=== PATIENT | female | born 1995 | race Caucasian/White ===

== ENCOUNTER 2024-09-26 14:09 | Emergency (ER) | payer OTHER, SELFPAY ==
[2024-09-26 14:20] VITALS: BP 105/63; PULSE 86; RESP 16; TEMP 37.1; O2SAT 100
--- NOTE | 2024-09-26 14:42 | ED_ITS ---
HPI - Ear Problem General Chief complaint: Ear Stated complaint: ear pain Source: patient Mode of arrival: ambulatory Limitations: no limitations History of Present Illness HPI Narrative: 21-year-old female presented for complaint of right ear pain for 5 days. Pain started after air travel. Denies decreased hearing, ear drainage, tinnitus, dizziness, nausea, vomiting, fevers or chills. Has not taken anything for pain. MD Complaint: ear pain Related Data Home Medications Medication Instructions Recorded Confirmed No Home Medications 09/26/24 09/26/24 Allergies Allergy/AdvReac Type Severity Reaction Status Date / Time No Known Allergies Allergy Unverified 09/26/24 14:30 Review of Systems Review of Systems: CONSTITUTIONAL: Denies malaise, chills, or fever. EYES: Denies visual changes, redness, or discharge. ENT: Denies rhinorrhea, congestion, sinus pain, and sore throat. Reports ear pain CARDIOVASCULAR: Denies chest pain, palpitations, or edema. RESPIRATORY: Denies cough or dyspnea. GASTROINTESTINAL: Denies abdominal pain, nausea, vomiting, diarrhea SKIN: Denies rash or itching. MUSCULOSKELETAL: Denies myalgia. NEUROLOGIC: Denies headache. All systems reviewed & are unremarkable except as noted in HPI and below PMFSH Comments At time of signature, agree with nursing past medical, surgical, social and family history. There is no relevant family history pertinent to the presenting complaint Exam Narrative: GENERAL: Well-appearing EYES: PERRLA, conjunctivae clear ENT: Nares clear. Mucous membranes moist. TMs pearly anne with dull light reflex bilaterally; no tragal tenderness. Oropharynx not erythematous without lesions. Tonsils not enlarged and without exudate, no drooling, no hoarseness, no trismus, uvula midline. NECK: Supple. No lymphadenopathy CHEST: Clear to auscultation, breath sounds equal. HEART: Regular rate and rhythm. No murmur heard. SKIN: Warm, dry NEURO: Alert and oriented x3. PSYCH: Normal mood and affect Course Course Emergency Course: Patient is aware of diagnosis, understands and agrees to treatment plan. Anticipatory guidance given. Patient agrees to follow-up as directed and is aware of reasons to seek care at the emergency department. Portions of this record may have been created with voice recognition software Level of Care: Express Care Visit Vital Signs Vital signs: Vital Signs Temperature 98.7 F 09/26/24 14:20 Pulse Rate 86 09/26/24 14:20 Respiratory Rate 16 09/26/24 14:20 Blood Pressure 105/63 09/26/24 14:20 Pulse Oximetry 100 09/26/24 14:20 Oxygen Delivery Room Air 09/26/24 14:20 Temperature 98.7 F 09/26/24 14:20 Pulse Rate 86 09/26/24 14:20 Respiratory Rate 16 09/26/24 14:20 Blood Pressure 105/63 09/26/24 14:20 Pulse Oximetry 100 09/26/24 14:20 Oxygen Delivery Room Air 09/26/24 14:20 Reviewed Medical Decision Making MDM Narrative Medical decision making narrative: discussed physical exam findings, no apparent otitis media. likely 2/2 barotrauma. Advised supportive measures and signs/symptoms to go to the ER. Patient is appropriate for outpatient treatment and follow-up. Differential Diagnosis Differential Diagnosis: Coronavirus, strep pharyngitis, allergic rhinitis, upper respiratory tract infection, sinusitis, rhinosinusitis, nasopharyngitis, viral pharyngitis, otitis media, otitis externa, eustachian tube dysfunction, foreign body, cerumen impaction. Vital Signs Vital Signs: Vital Signs Temperature 98.7 F 09/26/24 14:20 Pulse Rate 86 09/26/24 14:20 Respiratory Rate 16 09/26/24 14:20 Blood Pressure 105/63 09/26/24 14:20 Pulse Oximetry 100 09/26/24 14:20 Oxygen Delivery Room Air 09/26/24 14:20 Temperature 98.7 F 09/26/24 14:20 Pulse Rate 86 09/26/24 14:20 Respiratory Rate 16 09/26/24 14:20 Blood Pressure 105/63 09/26/24 14:20 Pulse Oximetry 100 09/26/24 14:20 Oxygen Delivery Room Air 09/26/24 14:20 Discharge Plan Discharge Clinical Impression: Acute otalgia Patient Disposition: Home, Self-Care Condition: Stable Instructions: Antibiotic Form, Earache (ED) Additional Instructions: Recommendations for ear pain: antihistamine such as Benadryl, Zyrtec or Sybil for sinus congestion along with Flonase nasal spray, 1 spray in each nostril once daily until symptoms improve Symptomatic treatment includes: rest, fluids, and increase humidity of the air at home. Tylenol 1000mg every 8 hours as needed to reduce fever, pain Please schedule a follow-up visit with your personal physician within 3-5days. If your symptoms persist, change or worsen significantly, go to the emergency department for further evaluation. Prescriptions: No Action No Home Medications Follow-up/Referrals: PHYSICIAN,POWERPLANT OPERATOR [Primary Care Provider] - Time of Disposition: 14:46
== END 2024-09-26 14:52 | disposition home or self-care (01) ==
PROVIDERS: Emergency Provider Nurse Practitioner Family
DX: H92.01 Otalgia, right ear (principal)
CPT/HCPCS: 99211; G0463

== ENCOUNTER 2025-02-20 18:10 | Emergency (ER) | payer OTHER, SELFPAY ==
[2025-02-20 18:17] VITALS: BP 103/60; PULSE 74; RESP 16; TEMP 36.7; O2SAT 100
--- OUTSIDE RECORDS SUMMARY | 2025-02-20 18:19 | XMS_ITS | Data Portability ---
Author Organization [facility] Address [address] [place] [address] Care Team Providers Care Provider Relations Coordinator Name Role Phone DAMIR BRISCOE Data Analysis Intern Assessment Encounter Date Assessment Date Assessment LastModified by Organization Details LastModified Time 09/10/2020 09/10/2020 PETRA Anaya PAMaxiS Not available 09/10/2020 16:41:01 Plan of Treatment Reminders Order Date Submit Date Provider Last Modified By Organization Details Last Modified Time Details Appointments None recorded. Lab urinalysis , dipstick 2022 023 [email or web address] i1 In-Office Order, Internal Use Only DO Not Attach Compendium DO Not Attach Compendium, Do Not Delete/merge, [id number] 3 15:37:27 bacterial vaginosis score, LAURIE+probe, vaginal fluid (OBS) 2022 023 [facility], [address] [place] [address], [address], [place], [address], 3 14:08:22 bacterial vaginosis score, LAURIE+probe, vaginal fluid (OBS) 2022 023 [facility], [address] [facility], [address], [place], [address], 3 14:08:17 pap, IG + reflex HPV 2021 022 DBA_PATCH_ [id number] [facility], [address], [place], [address], 3 03:37:09 bacterial vaginosis score, LAURIE+probe, vaginal fluid (OBS) 2021 022 DBA_PATCH_ [id number] [facility], [address], [place], [address], 3 03:37:09 urinalysis , dipstick 2021 022 [email or web address] i1 In-Office Order, Internal Use Only DO Not Attach Compendium DO Not Attach Compendium, Do Not Delete/merge, [id number] 2 16:12:34 urinalysis , dipstick 2019 020 [email or web address] In-Office Order, Internal Use Only DO Not Attach Compendium DO Not Attach Compendium, Do Not Delete/merge, [id number] 0 13:04:13 bacterial vaginosis panel, vaginal 2019 020 RITA [facility] (Centralized Electronic Ordering - All Locations), Patient Can Go To The Location Of Their Choice, [id number] 0 07:09:47 test, urine 2019 020 [email or web address] i1 In-Office Order, Internal Use Only DO Not Attach Compendium DO Not Attach Compendium, Do Not Delete/merge, [id number] 0 17:09:00 Referral None recorded. Procedures None recorded. Surgeries None recorded. Imaging None recorded. Medication Orders terconazol e 0.8 % vaginal cream 2022 023 [facility], [address], [place], [address], 3 15:37:36 fluconazol e 150 mg tablet 2022 023 [facility], [address], [place], [address], 3 15:16:18 Orilissa 150 mg tablet 2021 022 [facility], [address] [place], [address], 3 14:10:34 Orilissa 150 mg tablet 2020 [facility], [address] [place], [address], 3 14:10:32 multivitam in tablet 2019 [facility], [address] [place] [address], [address], 2 16:01:43 Calcium with Vitamin D 600 mg-10 mcg (400 unit) tablet 2019 [facility], [address] [place] [address], [address], 2 16:01:10 metronidaz ole 500 mg tablet 2019 021 [facility], [address] [place] [address], [address], 1 16:52:28 Nexplanon 68 mg subdermal implant 2019 [facility], [address] [place] [address], [address], 0 13:21:55 Patient TargetsNo targets recorded. Patient Instructions Encounter Date Encounter Id Patient Instructions Last Modified By Organization Details Last Modified Time 09/10/2020 [id number] bacterial vaginosis: care instructions Not available 09/10/2020 12:57:38 endometriosis: care instructions Not available 09/10/2020 12:57:38 implant for stanley h control: care instructions Not available 09/10/2020 12:57:38 12/10/2021 [id number] Well Visit, Ages 18 to 65: Care Instructions Not available 12/10/2021 16:12:34 endometriosis: care instructions Not available 12/11/2021 12:05:[address] Mikael blankenship Not available 01/02/2022 12:25:24 12/17/2022 [id number] PETRA BriscoeS, Discussed with Matilde Briscoe PA-C Not available 12/17/2022 14:39:13 Reason for Referral None Reported. Results Created Date Observation Date Name Description Value Unit Range Abnormal Flag Note LastModifiedBy Organization Detail LastModifiedTime 09/10/2009/10/2020 urina lysis , dipst ick Leukocytes Negati ve Not Available In-Office Order Internal Use Only DO Not Attach Compendium DO Not Attach Compendium, Do Not Delete/merge, [id number] 09/10/2020 12:18:19 09/10/20 20 09/10/2020 urina lysis , dipst ick Nitrite negati ve Not Available In-Office Order Internal Use Only DO Not Attach Compendium DO Not Attach Compendium, Do Not Delete/merge, [id number] 09/10/2020 12:18:19 09/10/20 20 09/10/2020 urina lysis , dipst ick Urobilinogen 1 Not Available In-Of fice Order Internal Use Only DO Not Attach Compendium DO Not Attach Compendium, Do Not Delete/merge, [id number] 09/10/2020 12:18:19 09/10/20 20 09/10/2020 urina lysis , dipst ick Protein Negati ve Not Available In-Office Order Internal Use Only DO Not Attach Compendium DO Not Attach Compendium, Do Not Delete/merge, [id number] 09/10/2020 12:18:19 09/10/20 20 09/10/2020 urina lysis , dipst ick pH 7.0 Not Available In-Office Order Internal Use Only DO Not Attach Compendium DO Not Attach Compendium, Do Not Delete/merge, [id number] 09/10/2020 12:18:19 09/10/20 20 09/10/2020 urina lysis , dipst ick Blood Negati ve Not Available In-Office Order Internal Use Only DO Not Attach Compendium DO Not Attach Compendium, Do Not Delete/merge, [id number] 09/10/2020 12:18:19 09/10/20 20 09/10/2020 urina lysis , dipst ick Specific Tunas 1.020 Not Available In-Off ice Order Internal Use Only DO Not Attach Compendium DO Not Attach Compendium, Do Not Delete/merge, [id number] 09/10/2020 12:18:19 09/10/20 20 09/10/2020 urina lysis , dipst ick Ketone Negati ve Not Available In-Office Order Internal Use Only DO Not Attach Compendium DO Not Attach Compendium, Do Not Delete/merge, [id number] 09/10/2020 12:18:19 09/10/20 20 09/10/2020 urina lysis , dipst ick Bilirubin Negati ve Not Available In-Office Order Internal Use Only DO Not Attach Compendium DO Not Attach Compendium, Do Not Delete/merge, [id number] 09/10/2020 12:18:19 09/10/20 20 09/10/2020 urina lysis , dipst ick Glucose Negati ve Not Available In-Office Order Internal Use Only DO Not Attach Compendium DO Not Attach Compendium, Do Not Delete/merge, [id number] 09/10/2020 12:18:19 09/10/20 20 09/10/2020 pregn verna test, urine HCG negati ve Not Available In-Office Order Internal Use Only DO Not Attach Compendium DO Not Attach Compendium, Do Not Delete/merge, [id number] 09/10/2020 12:18:03 09/10/20 20 09/13/2020 bacte rial vagin osis panel , vagin al trich vag by LAURIE NEGATI VE negati ve Not Available [facility] ([facility]) [address] [facility], [place], [address], 09/15/2020 07:09:47 09/10/20 20 09/13/2020 bacte rial vagin osis panel , vagin al chlamydia trachomatis, LAURIE NEGATI VE negati ve Not Available [facility] ([facility]) [address] [facility], [place], [address], 09/15/2020 07:09:47 09/10/2009/13/2020 bacte rial vagin osis panel , vagin al neisseria gonorrhoeae, LAURIE NEGATI VE negati ve Not Available [facility] ([facility]) [address] [place], [address], 09/15/2020 07:09:47 09/10/2009/13/2020 bacte rial vagin osis panel , vagin al hsv 1 LAURIE NEGATI VE negati ve Not Available [facility] ([facility]) [address] [place], [address], 09/15/2020 07:09:47 09/10/2009/13/2020 bacte rial vagin osis panel , vagin al hsv 2 LAURIE NEGATI VE negati ve Not Available [facility] ([facility]) [address] [place], [address], 09/15/2020 07:09:47 09/10/2009/14/2020 bacte rial vagin osis panel , vagin al atopobium vaginae HIGH - 2 score abnormal Not Available [facility] ([facility]) [address] [place], [address], 09/15/2020 07:09:47 09/10/2009/14/2020 bacte rial vagin osis panel , vagin al bvab 2 LOW - 0 score Not Available [facility] ([facility]) [address] [place], [address], 09/15/2020 07:09:47 09/10/2009/14/2020 bacte rial vagin osis panel , vagin al megasphaera 1 LOW - 0 score Calcu late total score by john dejesus the 3 indiv idual bacte rial vagin osis (BV) marke r score s toget her. Total score is inter prete d as follo ws: Total score 0-1: Indic ates the absen ce of BV. Total score 2: Yinka lim ate for BV. Addit ional clini maria l data shoul d be evalu ated to estab bernard a diagn osis. Total score 3-6: Indic ates the prese nce of BV. This test was devel oped and its perfo rmanc e raquel cteri stics deter mined by [facility]. It has not been clear ed or appro jane by the Food and Drug Admin istra tion. The FDA has deter mined that such clear ance or appro roverto is not neces ryanne. Not Available [facility] ([facility]) [address] [place], [address], 09/15/2020 07:09:47 09/10/20 20 09/15/2020 bacte rial vagin osis panel , vagin al yossi albicans, LAURIE POSITI VE negati ve abnormal Not Available [facility] ([facility]) [address] [place], [address], 09/15/2020 07:09:47 09/10/20 20 09/15/2020 bacte rial vagin osis panel , vagin al yossi glabrata, LAURIE NEGATI VE negati ve Not Available [facility] ([facility]) [address] [place], [address], 09/15/2020 07:09:47 12/10/19 22 12/10/2021 urina lysis , dipst ick Leukocytes Negati ve Not Available In-Office Order Internal Use Only DO Not Attach Compendium DO Not Attach Compendium, Do Not Delete/merge, [id number] 12/10/2021 15:51:01 12/10/19 22 12/10/2021 urina lysis , dipst ick Nitrite negati ve Not Available In-Office Order Internal Use Only DO Not Attach Compendium DO Not Attach Compendium, Do Not Delete/merge, [id number] 12/10/2021 15:51:01 12/10/19 22 12/10/2021 urina lysis , dipst ick Urobilinogen .2 Not Available In-Of fice Order Internal Use Only DO Not Attach Compendium DO Not Attach Compendium, Do Not Delete/merge, 12/10/2021 15:51:01 12/10/19 22 12/10/2021 urina lysis , dipst ick Protein Negati ve Not Available In-Office Order Internal Use Only DO Not Attach Compendium DO Not Attach Compendium, Do Not Delete/merge, 12/10/2021 15:51:01 12/10/19 22 12/10/2021 urina lysis , dipst ick pH 6.0 Not Available In-Office Order Internal Use Only DO Not Attach Compendium DO Not Attach Compendium, Do Not Delete/merge, 12/10/2021 15:51:01 12/10/19 22 12/10/2021 urina lysis , dipst ick Blood Negati ve Not Available In-Office Order Internal Use Only DO Not Attach Compendium DO Not Attach Compendium, Do Not Delete/merge, 12/10/2021 15:51:01 12/10/19 22 12/10/2021 urina lysis , dipst ick Specific Tunas 1.030 Not Available In-Off ice Order Internal Use Only DO Not Attach Compendium DO Not Attach Compendium, Do Not Delete/merge, 12/10/2021 15:51:01 12/10/19 22 12/10/2021 urina lysis , dipst ick Ketone Negati ve Not Available In-Office Order Internal Use Only DO Not Attach Compendium DO Not Attach Compendium, Do Not Delete/merge, 12/10/2021 15:51:01 12/10/19 22 12/10/2021 urina lysis , dipst ick Bilirubin Small Not Available In-Offic e Order Internal Use Only DO Not Attach Compendium DO Not Attach Compendium, Do Not Delete/merge, 12/10/2021 15:51:01 12/10/19 22 12/10/2021 urina lysis , dipst ick Glucose Negati ve Not Available In-Office Order Internal Use Only DO Not Attach Compendium DO Not Attach Compendium, Do Not Delete/merge, 12/10/2021 15:51:01 12/11/19 22 12/17/2021 NUSWA B VG+, HSV atopobium vaginae HIGH - 2 score abnormal Not Available [facility] ([facility]) [address] [facility], [place], [address], 12/17/2021 11:38:00 12/11/19 22 12/17/2021 NUSWA B VG+, HSV bvab 2 LOW - 0 score Not Available [facility] ([facility]) [address] [facility], [place], [address], 12/17/2021 11:38:00 12/11/19 22 12/17/2021 NUA B VG+, HSV megasphaera 1 LOW - 0 score Calcu late total score by john dejesus the 3 indiv idual bacte rial vagin osis (BV) marke r score s toget her. Total score is inter prete d as follo ws: Total score 0-1: Indic ates the absen ce of BV. Total score 2: Indet ermin ate for BV. Addit ional clini maria l data shoul d be evalu ated to estab bernard a diagn osis. Total score 3-6: Indic ates the prese nce of BV. This test was devel oped and its perfo rmanc e raquel cteri stics deter mined by [facility]. It has not been clear ed or appro jane by the Food and Drug Admin istra tion. Not Available [facility] ([facility]) [address] [facility], [place], [address], 12/17/2021 11:38:00 12/11/19 22 12/17/2021 NUSWA B VG+, HSV yossi albicans, LAURIE POSITI VE negati ve abnormal Not Available [facility] ([facility]) [address] [facility], [place], [address], 12/17/2021 11:38:00 12/11/19 22 12/17/2021 NUSWA B VG+, HSV yossi glabrata, LAURIE NEGATI VE negati ve Not Available [facility] ([facility]) [address] [facility], [place], [address], 12/17/2021 11:38:00 12/11/19 22 12/17/2021 NUA B VG+, HSV trich vag by LAURIE NEGATI VE negati ve Not Available [facility] ([facility]) [address] [facility], [place], [address], 12/17/2021 11:38:00 12/11/19 22 12/17/2021 NUSWA B VG+, HSV chlamydia trachomatis, LAURIE NEGATI VE negati ve Not Available [facility] ([facility]) [address] [facility], [place], [address], 12/17/2021 11:38:00 12/11/19 22 12/17/2021 NUA B VG+, HSV neisseria gonorrhoeae, LAURIE NEGATI VE negati ve Not Available [facility] ([facility]) [address] [facility], [place], [address], 12/17/2021 11:38:00 12/11/19 22 12/17/2021 NUA B VG+, HSV hsv 1 LAURIE NEGATI VE negati ve Not Available [facility] ([facility]) [address] [facility], [place], [address], 12/17/2021 11:38:00 12/11/19 22 12/17/2021 NUA B VG+, HSV hsv 2 LAURIE NEGATI VE negati ve Not Available [facility] ([facility]) [address] [place], [address], 12/17/2021 11:38:00 12/11/19 22 12/13/2021 IGP,A PTIMA HPV,A GE GDLN age gdln acog testing 21-29 Not Available [facility] ([facility]) [address] [place], [address], 12/18/2021 03:07:36 12/11/19 22 12/16/2021 IGP,A PTIMA HPV,A GE GDLN diagnosis: WALLY Zambrano abnormal EPITH ELIAL CELL ABNOR MALIT Y. ATYPI MARIA L SQUAM OUS CELLS OF UNDET ERMIN ED SIGNI FICAN CE (ASC- US). Not Available [facility] ([facility]) [address] [place], [address], 12/18/2021 03:07:36 12/11/19 22 12/16/2021 IGP,A PTIMA HPV,A GE GDLN recommendati on: WALLY Zambrano abnormal Sugge st follo w up as clini chirag appro priat e. Not Available [facility] ([facility]) [address] [place], [address], 12/18/2021 03:07:36 12/11/19 22 12/16/2021 IGP,A PTIMA HPV,A GE GDLN specimen adequacy: WALLY Zambrano Satis facto ry for evalu ation . Endoc ervic al and/o r squam ous metap lasti c cells (endo cervi maria l compo nent) are prese nt. Not Available [facility] ([facility]) [address] [place], [address], 12/18/2021 03:07:36 12/11/19 22 12/16/2021 IGP,A PTIMA HPV,A GE GDLN clinician provided ICD10: WALLY Zambrano Z01.4 19 Not Available [facility] ([facility]) [address] [place], [address], 12/18/2021 03:07:36 12/11/19 22 12/16/2021 IGP,A PTIMA HPV,A GE GDLN performed by: WALLY garcia, Cytot gena zambrano (ASCP ) Not Available [facility] ([facility]) [address] [place], [address], 12/18/2021 03:07:36 12/11/19 22 12/16/2021 IGP,A PTIMA HPV,A GE GDLN electronical ly signed by: WALLY Tadeo MD, Patho logis t Not Available [facility] ([facility]) [address] [facility], [place], [address], 12/18/2021 03:07:36 12/11/19 22 12/16/2021 IGP,A PTIMA HPV,A GE GDLN . . Not Available [facility] ([facility]) [address] [place], [address], 12/18/2021 03:07:36 12/11/19 22 12/16/2021 IGP,A PTIMA HPV,A GE GDLN pathologist provided ICD10: WALLY Zambrano R87.6 10 Not Available [facility] ([facility]) [address] [facility], [place], [address], 12/18/2021 03:07:36 12/11/19 22 12/16/2021 IGP,A PTIMA HPV,A GE GDLN note: WALLY Zambrano The Pap smear is a scree vangie test desig rea to aid in the detec tion of kiki ligna nt and malig nant condi tions of the uteri ne cervi x. It is not a diagn ostic proce dure and shoul d not be used as the sole means of detec ting cervi maria l cance r. Both false -posi tive and false -nega tive repor ts do occur . Not Available [facility] ([facility]) [address] [facility], [place], [address], 12/18/2021 03:07:36 12/11/19 22 12/16/2021 IGP,A PTIMA HPV,A GE GDLN test methodology: WALLY Zambrano This liqui d based ThinP rep(R ) pap test was scree rea with the use of an image guide d syste m. Not Available [facility] ([facility]) [address] [place], [address], 12/18/2021 03:07:36 12/11/19 22 12/16/2021 IGP,A PTIMA HPV,A GE GDLN . COMMEN T See below for HPV testi ng resul ts. Not Available [facility] ([facility]) [address] [facility], [place], [address], 12/18/2021 03:07:36 12/11/19 22 12/17/2021 cytol ogy repor t, thin prep, smear or scrap ing, cervi maria l or vagin al HPV aptima NEGATI VE negati ve This nucle ic acid ampli ficat ion test detec ts fourt een high- risk HPV types (16,1 8,31, 33,35 ,39,4 5,51, 52,56 ,58,5 9,66, 68) witho ut diffe renti ation . Not Available [facility] ([facility]) [address] [facility], [place], [address], 12/18/2021 03:07:37 12/17/19 23 12/20/2022 NUSWA B VG+, HSV atopobium vaginae LOW - 0 score Not Available [facility] ([facility]) [address] [facility], [place], [address], 12/21/2022 14:08:17 12/17/19 23 12/20/2022 NUSWA B VG+, HSV bvab 2 LOW - 0 score Not Available [facility] ([facility]) [address] [place], [address], 12/21/2022 14:08:17 12/17/19 23 12/20/2022 NUSWA B VG+, HSV megasphaera 1 LOW - 0 score Calcu late total score by john dejesus the 3 indiv idual bacte rial vagin osis (BV) marke r score s toget her. Total score is inter prete d as follo ws: Total score 0-1: Indic ates the absen ce of BV. Total score 2: Indet ermin ate for BV. Addit ional clini maria l data shoul d be evalu ated to estab bernard a diagn osis. Total score 3-6: Indic ates the prese nce of BV. This test was devel oped and its perfo rmanc e raquel cteri stics deter mined by [facility]. It has not been clear ed or appro jane by the Food and Drug Admin istra tion. Not Available [facility] ([facility]) [address] [place], [address], 12/21/2022 14:08:17 12/17/19 23 12/20/2022 NUSWA B VG+, HSV trich vag by LAURIE NEGATI VE negati ve Not Available [facility] ([facility]) [address] [place], [address], 12/21/2022 14:08:17 12/17/19 23 12/20/2022 NUSWA B VG+, HSV chlamydia trachomatis, LAURIE NEGATI VE negati ve Not Available [facility] ([facility]) [address] [place], [address], 12/21/2022 14:08:17 12/17/19 23 12/20/2022 NUSWA B VG+, HSV neisseria gonorrhoeae, LAURIE NEGATI VE negati ve Not Available [facility] ([facility]) [address] [place], [address], 12/21/2022 14:08:17 12/17/19 23 12/21/2022 NUSWA B VG+, HSV yossi albicans, LAURIE POSITI VE negati ve abnormal Not Available [facility] ([facility]) [address] [place], [address], 12/21/2022 14:08:17 12/17/19 23 12/21/2022 NUSWA B VG+, HSV yossi glabrata, LAURIE NEGATI VE negati ve Not Available [facility] ([facility]) [address] [place], [address], 12/21/2022 14:08:17 12/17/19 23 12/21/2022 NUSWA B VG+, HSV hsv 1 LAURIE NEGATI VE negati ve Not Available [facility] ([facility]) [address] [facility], [place], [address], 12/21/2022 14:08:17 12/17/19 23 12/21/2022 NUSWA B VG+, HSV hsv 2 LAURIE NEGATI VE negati ve Not Available [facility] ([facility]) [address] [facility], [place], [address], 12/21/2022 14:08:17 07/08/20 23 07/11/2023 NUSWA B VG+, HSV atopobium vaginae Low - 0 score Not Available [facility] ([facility]) [address] [facility], [place], [address], 07/12/2023 14:08:22 07/08/20 23 07/11/2023 NUSWA B VG+, HSV bvab 2 Low - 0 score Not Available [facility] ([facility]) [address] [place], [address], 07/12/2023 14:08:22 07/08/20 23 07/11/2023 NUSWA B VG+, HSV megasphaera 1 Low - 0 score Calcu late total score by john dejesus the 3 indiv idual bacte rial vagin osis (BV) marke r score s toget her. Total score is inter prete d as follo ws: Total score 0-1: Indic ates the absen ce of BV. Total score 2: Indet ermin ate for BV. Addit ional clini maria l data shoul d be evalu ated to estab bernard a diagn osis. Total score 3-6: Indic ates the prese nce of BV. This test was devel oped and its perfo rmanc e raquel cteri stics deter mined by [facility]. It has not been clear ed or appro jane by the Food and Drug Admin istra tion. Not Available [facility] ([facility]) [address] [facility], [place], [address], 07/12/2023 14:08:22 07/08/20 23 07/11/2023 NUSWA B VG+, HSV trich vag by LAURIE Negati ve negati ve Not Available [facility] ([facility]) [address] [facility], [place], [address], 07/12/2023 14:08:22 07/08/20 23 07/11/2023 NUSWA B VG+, HSV chlamydia trachomatis, LAURIE Negati ve negati ve Not Available [facility] ([facility]) [address] [facility], [place], [address], 07/12/2023 14:08:22 07/08/20 23 07/11/2023 NUSWA B VG+, HSV neisseria gonorrhoeae, LAURIE Negati ve negati ve Not Available [facility] ([facility]) [address] [facility], [place], [address], 07/12/2023 14:08:22 07/08/20 23 07/11/2023 NUSWA B VG+, HSV hsv 1 LAURIE Negati ve negati ve Not Available [facility] ([facility]) [address] [place], [address], 07/12/2023 14:08:22 07/08/20 23 07/11/2023 NUSWA B VG+, HSV hsv 2 LAURIE Negati ve negati ve Not Available [facility] ([facility]) [address] [place], [address], 07/12/2023 14:08:22 07/08/20 23 07/12/2023 NUSWA B VG+, HSV yossi albicans, LAURIE Positi ve negati ve abnormal Not Available [facility] ([facility]) [address] [place], [address], 07/12/2023 14:08:22 07/08/20 23 07/12/2023 NUSWA B VG+, HSV yossi glabrata, LAURIE Negati ve negati ve Not Available [facility] ([facility]) [address], [place], [address], 07/12/2023 14:08:22 07/08/20 23 07/08/2023 urina lysis , dipst ick Leukocytes Trace Not Available In-Offi ce Order Internal Use Only DO Not Attach Compendium DO Not Attach Compendium, Do Not Delete/merge, [id number] 07/08/2023 15:33:43 07/08/2007/08/2023 urina lysis , dipst ick Nitrite negati ve Not Available In-Office Order Internal Use Only DO Not Attach Compendium DO Not Attach Compendium, Do Not Delete/merge, [id number] 07/08/2023 15:33:43 07/08/2007/08/2023 urina lysis , dipst ick Urobilinogen 1 Not Available In-Of fice Order Internal Use Only DO Not Attach Compendium DO Not Attach Compendium, Do Not Delete/merge, [id number] 07/08/2023 15:33:43 07/08/2007/08/2023 urina lysis , dipst ick Protein Negati ve Not Available In-Office Order Internal Use Only DO Not Attach Compendium DO Not Attach Compendium, Do Not Delete/merge, [id number] 07/08/2023 15:33:43 07/08/2007/08/2023 urina lysis , dipst ick pH 6.5 Not Available In-Office Order Internal Use Only DO Not Attach Compendium DO Not Attach Compendium, Do Not Delete/merge, [id number] 07/08/2023 15:33:43 07/08/2007/08/2023 urina lysis , dipst ick Blood Negati ve Not Available In-Office Order Internal Use Only DO Not Attach Compendium DO Not Attach Compendium, Do Not Delete/merge, [id number] 07/08/2023 15:33:43 07/08/2007/08/2023 urina lysis , dipst ick Specific Tunas 1.025 Not Available In-Off ice Order Internal Use Only DO Not Attach Compendium DO Not Attach Compendium, Do Not Delete/merge, [id number] 07/08/2023 15:33:43 07/08/2007/08/2023 urina lysis , dipst ick Ketone Negati ve Not Available In-Office Order Internal Use Only DO Not Attach Compendium DO Not Attach Compendium, Do Not Delete/merge, [id number] 07/08/2023 15:33:43 07/08/2007/08/2023 urina lysis , dipst ick Bilirubin Negati ve Not Available In-Office Order Internal Use Only DO Not Attach Compendium DO Not Attach Compendium, Do Not Delete/merge, [id number] 07/08/2023 15:33:43 07/08/2007/08/2023 urina lysis , dipst ick Glucose Negati ve Not Available In-Office Order Internal Use Only DO Not Attach Compendium DO Not Attach Compendium, Do Not Delete/merge, [id number] 07/08/2023 15:33:43 Result Notes None recorded. Problems Name Problem SNOMED Code Status Onset Date Resolution Date Notes Provider Name and Address Organization Details Recorded Time 08265811 Completed 201705/20/2018 [place]vin [place]erm[place], [place] [facility] 8 16:24:36 Endometri osis (clinical ) 766646156 Completed [place]BIN[place] [facility] 9 11:58:39 History of chlamydia l infection 087071623 Com[place] [facility] 9 11:58:40 Cyst of ovary 13538531 Completed 2017 [place] [facility] 9 11:58:39 Cyst of ovary 88233253 Active 2017 [place] [facility] 9 11:58:40 History of chlamydia l infection 992415732 Completed 11/03/2018 [place] [facility] 8 13:28:00 Migraine 94888798 Completed 2017 Valarie Shaikh [place] [facility] 9 11:58:39 Migraine 51812880 Active 2017 Valarie Shaikh [place] [facility] 9 11:58:39 Endometri osis (clinical ) 155345947 Active Valarie Shaikh [place] [facility] 9 11:58:39 Bacterial vaginosis 853738850 Completed 2017 Valarie Shaikh [place] [facility] 9 11:58:40 Bacterial vaginosis 390100947 Active 2017 Valarie Shaikh [place] [facility] 9 11:58:40 Candidias is of vagina 39215616 Active 2017 Valarie Shaikh [place] [facility] 9 11:45:15 Toe swelling 045109786 Completed 05/20/2018 Er[place] [facility] 8 16:24:19 Celluliti s of toe 10333521 Completed 05/20/2018 [place] [facility] 8 16:24:24 Swelling 28309737 Completed 05/20/2018 Ervin LastRoseline [place] [facility] 8 16:24:32 Computed tomograph y result abnormal 912014825 Completed 201605/20/2018 Ervin LastRoseline [place] [facility] 8 16:24:16 Kidney lesion 547167488947 00 Completed 201611/03/2018 Jazz Gutierrez [place] [facility] 8 13:28:00 Acute pharyngit is 394712290 Completed 201611/03/2018 Jazz Gutierrez [place] [facility] 8 13:28:00 Allergic rhinitis 89507225 Completed 201611/03/2018 Jazz Gutierrez [place] [facility] 8 13:28:00 Notes:Toe plus burak toenails are going back after being removed 02/2014 Problem Notes None recorded. Procedures Surgical History Date Name Laterality Status Provider Name and Address Organization Details Recorded Time 2 Date of Last Pap Smear completed Dora Hunter MA [facility] 12/10/2021 16:03:09 0 Control Implant Insertion completed SILVIO DELGADO Attn: Accounting,[address] [facility], [place], [address], [facility] 09/10/2020 14:53:02 9 Depo Injection completed Jazz Gutierrez MA [facility] 02/18/2019 10:42:02 9 delivery completed Dora Hunter MA [facility] 09/10/2020 12:16:35 Imaging Results None recorded. Procedure Notes None recorded. Medical Equipment None Reported. Allergies No known drug allergies Medications Name Sig Start Date Stop Date Status Note LastModified by Organization Details LastModified Time multivita min tablet Take 1 tablet every day by oral route. 12/10 completed Not Available Not Available Not Available cetirizin e 10 mg tablet Take 1 tablet every day by oral route. 12/10 completed Not Available Not Available Not Available fluconazo le 150 mg tablet Take 1 tablet every day by oral route for 1 day. 07/08 completed Not Available Not Available Not Available metronida zole 0.75 % (37.5 mg/5 gram) vaginal gel INSERT 1 APPLICAT ORFUL VAGINALL Y ONCE DAILY AT BEDTIME FOR 5 DAYS 12/17 completed Not Available Not Available Not Available terconazo le 0.8 % vaginal cream Insert 1 applicat orful every day by vaginal route at bedtime for 3 days. 2022 active Not Available Not Available Not Avai lable Zithromax Z-Nicholas 250 mg tablet TAKE 2 TABLETS (500 MG) BY ORAL ROUTE ONCE DAILY FOR 1 DAY THEN 1 TABLET (250 MG) BY ORAL ROUTE ONCE DAILY FOR 4 DAYS 11/17 completed Not Available Not Available Not Available metronida zole 500 mg tablet Take 1 tablet twice a day by oral route for 7 days. 08/29 completed Not Available Not Available Not Available Vitamin tablet Take 1 tablet every day by oral route as directed for 90 days. 09/26 completed Not Available Not Available Not Available Depo-Prov era 150 mg/mL intramusc ular suspensio n Inject 1 mL every 3 months by intramus cular route. 09/26 completed Not Available Not Available Not Available ibuprofen 200 mg tablet Take 2 tablets every 6 hours by oral route as needed. 12/10 completed Not Available Not Available Not Available monteluka st 10 mg tablet Take 1 tablet every day by oral route. 08/29 completed 09/10/20 Pt still takes medicati on Not Available Not Available Not Available azithromy luis 500 mg tablet Take 2 tablets by oral route for 3 days. 04/26 completed Not Available Not Available Not Available ferrous gluconate 324 mg (36 mg iron) tablet 12/10 completed Not Available Not Available Not Available ferrous gluconate 324 mg (38 mg iron) tablet Take 1 tablet twice a day by oral route. 11/17 completed Not Available Not Available Not Available Calcium with Vitamin D3 600 mg (carbonat e)-10 mcg (400 unit) capsule Take 1 capsule twice a day by oral route. 09/10 completed Not Available Not Available Not Available Calcium with Vitamin D 600 mg-10 mcg (400 unit) tablet Take 1 tablet twice a day by oral route. 12/10 completed Not Available Not Available Not Available Nexplanon 68 mg subdermal implant Inject 1 implant by subcutan eous route. 2019 active Not Available Not Available Not Avai lable Flonase Allergy Relief 50 mcg/actua tion nasal spray,gisela pension [place] 1 spray every day by intranas al route. 08/29 completed Not Available Not Available Not Available Orilissa 150 mg tablet Take 1 tablet every day by oral route. 12/17 completed Not Available Not Available Not Available ID NOW COVID-19 Test Kit TEST DIRECTED 07/08 completed Not Available Not Available Not Available Vitals Date Recorded Body height Body mass index (BMI) Body weight Systolic blood pressure Diastolic blood pressure Provider Name and Address Organization Details Last Updated DateTime 09/10/2020 165.1 cm 19 kg/m2 66358.67 g 98 mm[Hg] 56 mm[Hg] Dora Hunter MA [facility] 0 12:23:34 Date Recorded Body height Body mass index (BMI) Body weight Systolic blood pressure Diastolic blood pressure Provider Name and Address Organization Details Last Updated DateTime 08/29/2021 165.1 cm 19.3 kg/m2 45520.71 g 124 mm[Hg] 62 mm[Hg] Dora Hunter MA [facility] 1 16:42:34 Date Recorded Body height Body mass index (BMI) Body weight Systolic blood pressure Diastolic blood pressure Provider Name and Address Organization Details Last Updated DateTime 12/10/2021 165.1 cm 19 kg/m2 46883.53 g 120 mm[Hg] 62 mm[Hg] Dora Hunter MA [facility] 2 16:05:04 Date Recorded Body height Body mass index (BMI) Body weight Systolic blood pressure Diastolic blood pressure Provider Name and Address Organization Details Last Updated DateTime 12/17/2022 165.1 cm 19.1 kg/m2 15145.69 g 96 mm[Hg] 52 mm[Hg] Dora Hunter MA [facility] 3 14:13:01 Date Recorded Body height Body mass index (BMI) Body weight Systolic blood pressure Diastolic blood pressure Provider Name and Address Organization Details Last Updated DateTime 07/08/2023 165.1 cm 18.5 kg/m2 43471.75 g 98 mm[Hg] 52 mm[Hg] Valarie Shaikh MA [facility] 3 15:19:49 Social History Question Answer Notes LastModified by Organizat ion Details LastModified Time Tobacco Smoking Status Current Every Day Smoker Valarie Shaikh MA [facility], [facility] 07/08/2023 15:17:48 Do You Have An Advance Directive? No [email or web address] Information not available 01/04/2018 What Is Your Level Of Alcohol Consumption? None [email or web address] Information not available 01/04/2018 If You Are , What Was Your Level Of Alcohol Consumption Prior To ? None Information not available 04/26/2018 Is Blood Transfusion Acceptable In An Emergency? Yes [email or web address] Information not available 01/04/2018 What Is Your Level Of Caffeine Consumption? Occasional [email or web address] Information not available 01/04/2018 Live With Cats/exposure To Cat Litter No Information not available 04/26/2018 How Much Tobacco Do You Chew? None [email or web address] Information not available 01/04/2018 Are You Currently Employed? Yes [email or web address] Information not available 01/04/2018 What Type Of Diet Are You Following? REGULAR Information not available 01/04/2018 Which Illicit Or Recreational Drugs Have You Used? 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 No Information not available 04/26/2018 Frequent Air Travel No Information not available 04/26/2018 Illicit Drugs Pre- None Information not available 04/26/2018 Live Alone Or With Others? With Others [email or web address] Information not available 01/04/2018 Marital Status Single Informatio n not available 04/26/2018 What Was The Date Of Your Most Recent Tobacco Screening? 07/08/2023 Information not available 07/08/2023 How Many Children Do You Have? 0 [email or web address] Information not available 01/04/2018 Are There Any Occupational Health Risks Where You Work? None Information not available 04/26/2018 What Is Your Current Pack Years? [email or web address] Information not available 07/08/2023 Performs Monthly Self-breast Exam? Yes [email or web address] Information not available 01/04/2018 Do You Use Protection During Sex? No [email or web address] Information not available 01/04/2018 What Is Your Relationship Status? Single [email or web address] Information not available 01/04/2018 Seat Belts Used Routinely Yes [email or web address] Information not available 01/04/2018 Are You Sexually Active? Yes [email or web address] Information not available 01/04/2018 Do You Have Smoke And Carbon Monoxide Detectors In Your Home? Yes Information not available 04/26/2018 At What Age Did You Start Smoking Tobacco? 6 Information not available 07/08/2023 Are You Passively Exposed To Smoke? No Information not available 04/26/2018 How Much Tobacco Do You Smoke? 2 PPW Information not available 07/08/2023 Smoking Pre- .25 PPD Information not available 04/26/2018 General Stress Level Medium [email or web address] Information not available 01/04/2018 Do You Use Any Illicit Or Recreational Drugs? No Information not available 08/29/2021 Do You Use Sunscreen Routinely? Yes [email or web address] Information not available 01/04/2018 Has Tobacco Cessation Counseling Been Provided? Yes Information not available 07/08/2023 On What Date Was Tobacco Cessation Counseling Provided? 07/08/2023 Information not available 07/08/2023 How Many Years Have You Smoked Tobacco? 2 [email or web address] Information not available 02/03/2017 Do You Or Have You Ever Used Any Other Forms Of Tobacco Or Nicotine? No Information not available 08/29/2021 Sex: Unknown Functional Status Question Answer Note LastModified by Organization D etails LastModified Time What is your exercise level? Moderate [email or web address] Information not available 01/04/2018 Mental Status None recorded. Family History Relationship Description Onset Age of this Age Resolved Age Notes LastModified by Organization Details LastModified Time Mother Asthma [email or web address] Not available 17:29:49 Mother Diabetes mellitus [email or web address] Not available 2013 17:29:49 Mother Hypertensive disorder tpetri Not available 2013 17:29:49 Mother Migraine tpetri Not available 1 12/04/2013 17:29:49 Sister Asthma tpetri Not available 17:29:49 Sister Blood coagulation disorder tpetri Not available 2013 17:29:49 Sister Depressive disorder tpetri Not available 2013 17:29:49 Sister Migraine tpetri Not available 1 12/04/2013 17:29:49 Medical History Condition Response Other N High Blood Pressure N Breast Cancer N Thyroid Problems N Kidney or Bladder Problems N GI Problems Y Depression N Blood Clots N Lung Disease N Acne N Eating Disorder N Breast Problem N Anemia N Anesthesia Complications N Headaches/Migraines Y Anxiety Disorder N Diabetes N Ovarian Cancer N Muscle, Joint, or Bone Problems Y Blood Transfusions N Seizures/Epilepsy N Polyps N Infertility N Acid Reflux (GERD) N Cancer N Abuse/Domestic Violence N Asthma N Endometriosis N High Cholesterol N Hepatitis N Liver Disease N Heart Disease N Headaches Y Pre-Eclampsia N Osteoporosis N Gynecological History Statement/Question Response Abnormal Pap N Flow Heavy Date of LMP 06/01/2023 On BCP's at Conception? N STIs/STDs Y HPV Vaccine Y Duration of Flow (days) 4 Age at Menarche 12 Current Control Method Implant Frequency of Cycle (Q days) Sexually Active? Y Menses Monthly Y Date of Last Pap Smear 12/10/2021 Sexual Problems? Y LMP Definite Desired Control Method Implant Obstetrics History GPAL:G 1 P 1 0 0 1 Type Value Multiple Births 0 Full Term 1 Induced 0 Spontaneous 0 Premature 0 Living 1 Ectopics 0 Total 1 Immunizations Vaccine Type Date Status Note Provider Nam e and Address Organization Details Recorded Time COVID-19, mRNA, LNP-S, PF, 100 mcg/0.5mL dose or 50 mcg/0.25mL dose 1 completed Gricelda Bell [place] [facility] 02/04/2024 10:40:14 COVID-19, mRNA, LNP-S, PF, 100 mcg/0.5mL dose or 50 mcg/0.25mL dose 1 completed [place]ricelda Bell [place] [facility] 02/04/2024 10:40:14 Hib, unspecified formulation 6 completed [place]ricelda [place] [facility] 02/04/2024 10:40:14 Hib, unspecified formulation 6 completed [place]ricelda [place] [facility] 02/04/2024 10:40:14 Hib, unspecified formulation 6 completed [place]ricelda [place] [facility] 02/04/2024 10:40:14 meningococcal ACWY, unspecified formulation 0 completed [place]elda [place] [facility] 02/04/2024 10:40:14 MMR 2 completed [place]ricelda [place] [facility] 02/04/2024 10:40:14 MMR 2 completed [place]elda [place] [facility] 02/04/2024 10:40:14 influenza, unspecified formulation 0 completed [place]elda [place] [facility] 02/04/2024 10:40:14 varicella 0 completed [place]elda [place] [facility] 02/04/2024 10:40:14 varicella 1 completed [place]ricelda [place] [facility] 02/04/2024 10:40:14 Hep B, unspecified formulation 7 completed [place]ricelda [place] [facility] 02/04/2024 10:40:14 Hep B, unspecified formulation 6 completed [place]elda [place] [facility] 02/04/2024 10:40:14 Hep B, unspecified formulation 6 completed [place]el[place] [facility] 02/04/2024 10:40:14 polio, unspecified formulation 2 completed [place]ricelda [place] [facility] 02/04/2024 10:40:14 polio, unspecified formulation 7 completed [place]elda [place] [facility] 02/04/2024 10:40:14 polio, unspecified formulation 6 completed [place]elda [place] [facility] 02/04/2024 10:40:14 polio, unspecified formulation 6 completed [place]el[place] [facility] 02/04/2024 10:40:14 Influenza, split virus, trivalent, PF 3 completed [place]el[place] [facility] 02/04/2024 10:40:14 HPV, quadrivalent 9 completed Gricelda Bell, [place] [facility] 02/04/2024 10:40:14 Td (adult), 2 Lf tetanus toxoid, preservative free, adsorbed 0 completed Gricelda Bell[place] [facility] 02/04/2024 10:40:14 DTaP, unspecified formulation 2 completed Gricelda Bell, [place] [facility] 02/04/2024 10:40:14 DTaP, unspecified formulation 6 completed Gricelda Bell[place] [facility] 02/04/2024 10:40:14 DTaP, unspecified formulation 6 completed [place]elda [place] [facility] 02/04/2024 10:40:15 DTaP, unspecified formulation 6 completed [place]elda [place] [facility] 02/04/2024 10:40:15 Hep A, unspecified formulation 1 completed [place]elda [place] [facility] 02/04/2024 10:40:15 Hep A, unspecified formulation 0 completed [place]elda [place] [facility] 02/04/2024 10:40:15 Tdap 8 completed Not Available [facility] 12/03/2019 02:36:56 Influenza, split virus, quadrivalent, PF 8 completed Not Available [facility] 12/03/2019 02:50:29 Influenza, split virus, quadrivalent, PF 9 completed Not Available [facility] 12/03/2019 02:46:43 Past Encounters Encounter ID Performer Location Encounter Start Date Encounter Closed Date Diagnosis/Indication Diagnosis SNOMED-CT Code Diagnosis ICD10 Code Diagnosis Note [id number] ALBINO Gaming (Adult Med) [address] [place] [phone] 0 10/04/2014 14:56:27 10/04/2014 21:44:03 Toe swelling 706550975 Cellulitis of toe 42835862 [id number] MD Allyson Johns (Adult Med) [address] [place] [phone] 0 02/03/2017 12:03:26 02/03/2017 12:49:13 Computed tomography result abnormal 969318764 R93.8 Hydronephr osis [id number] MD Allyson Johns (Adult Med) [address] [place] [address] 03/24/2017 15:31:14 03/24/2017 17:48:58 Acute pharyngitis 381959953 J02.9 Strep screen negative Kidney lesion 5048544366 9100 N28.9 Current renal US normal Allergic rhinitis 306464 04 J30.9 [id number] Cammy Miller ([employer]) [address] [place] [address] 01/04/2018 14:46:24 01/14/2018 14:05:19 Gynecologic examination 95362650 Z01.411 First pap done. Venereal d isease screening 397610759 Z11.3 RTO one week for results. Bacterial vaginosis 4197 34767 N76.0 Diagnosis d/w pt. Rx sent to pharmacy. Herve singh discussed. Candidal vulvovaginitis 32042769 B37.3 Diagnosis d/w pt. Rx sent to pharmacy. Herve singh discussed. [id number] Cammy Miller ([employer]) [address] [place] [address] 01/20/2018 15:42:10 01/21/2018 14:10:11 Chlamydial vulvovaginitis 321702640 A56.02 Diagnosis d/w pt. Rx sent to pharmacy. Herve singh discussed. Pt. instructed to have her partner(s) tested and treated. No sex until negative DAVEY. RTO 3 weeks for DAVEY. Candidal vulvovaginitis 88732104 B37.3 Diagnosis d/w pt. Rx sent to pharmacy. Herve singh discussed. Venereal d isease screening 353889936 Z11.3 Vaginal culture was positive for chlamydia, dwp. See below. It was negative for gonorrhea and trichomona s, dwp. STD panel was also completely negative. Individual test results dwp. Gynecologi c examination 57239860 Z01.411 Pap done 01/04/18 was negative, dwp. [id number] Ervin Valadez ([employer]) [address] [place] [address] 0 04/26/2018 14:21:50 04/27/2018 11:52:36 Routine care 630606557 Z34.90 History of chlamydial infection 329087571 Z86.19 Cyst of ovary 31891331 N 83.209 Ruptured in 2012. [id number] Ervin Valadez HC ([employer]) [address] [place] [id number] 0 05/20/2018 15:47:06 05/20/2018 16:31:51 Routine care 376947268 Z34.90 History of chlamydial infection 043153857 Z86.19 CT test positive on 01/04/2018 and 04/26/2018 [id number] Ervin Valadez ([employer]) [address] [place] [id number] 0 06/17/2018 14:54:06 06/17/2018 16:00:20 History of chlamydial infection 554391290 Z86.19 CT test positive on 01/04/2018 and 04/26/2018 Routine an tenatal care 746485225 Z34.90 Migraine 28180916 G43.90 9 [id number] Ervin Valadez ([employer]) [address] [place] [address] 83841-372 0 07/15/2018 15:51:26 07/15/2018 16:39:19 Routine care 495815287 Z34.90 History of chlamydial infection 350271918 Z86.19 CT test positive on 01/04/2018 and 04/26/2018. Negative on 07/01/18 [id number] Ervin Valadez ([employer]) [address] [place] [address] 0 08/25/2018 15:00:21 08/25/2018 16:18:32 Routine care 961590333 Z34.90 History of chlamydial infection 417016833 Z86.19 CT test positive on 01/04/2018 and 04/26/2018. Negative on 07/01/18. [id number] ALBINO Mcqueen ([employer]) [address] [place] [address] 0 09/22/2018 10:00:31 09/22/2018 11:39:27 Routine care 209128734 Z34.90 childbirth classes offered screening 2437 22625 Z36.9 Administra tion of influenza vaccine 85634954 Z23 [id number] ALBINO Mcqueen ([employer]) [address] [place] [address] 0 10/06/2018 11:31:13 10/06/2018 13:00:21 Routine care 314731268 Z34.90 childbirth classes offered History of chlamydial infection 295667397 Z86.19 CT test positive on 01/04/2018 and 04/26/2018. Negative on 07/01/18. [id number] Ervin Valadez ([employer]) [address] [place] [address] 8[address]-135 0 10/21/2018 12:49:07 10/21/2018 16:46:31 Routine care 660524095 Z34.90 childbirth classes offered Endometrio sis (clinical) 082809177 N80.9 History of chlamydial infection 323875406 Z86.19 CT test positive on 01/04/2018 and 04/26/2018. Negative on 07/01/18. [id number] Ervin Valadez ([employer]) [address] [place] [address] 0 11/03/2018 12:49:51 11/03/2018 17:20:49 Routine care 910693768 Z34.90 childbirth classes offered Endometrio sis (clinical) 288693692 N80.9 Sinusitis 19217308 J32.9 Allergic rhinitis 948161 04 J30.9 [id number] Ervin Valadez ([employer]) [address] [place] [address]53[address] 0 11/11/2018 15:38:12 11/12/2018 12:06:14 Routine care 436393408 Z34.90 childbirth classes offered Endometrio sis (clinical) 955550863 N80.9 [id number] Ervin Valadez ([employer]) [address] [place] [address] [phone] 0 11/17/2018 15:37:08 11/18/2018 12:01:34 Routine care 057935901 Z34.90 childbirth classes offered [id number] Ervin Valadez HC ([employer]) [address] [place] [address] 95332-630 0 01/13/2019 11:27:51 01/13/2019 15:25:11 care 638605793 Z39.2 Exposure t o sexually transmissible disorder 474097030 Z20.2 Family satish nning surveillance 003471870 Z30.09 Routine an tenatal care 074729883 Z34.90 childbirth classes offered [id number] ALBINO Mcqueen HC ([employer]) [address] [place] [address] [phone] 0 02/18/2019 10:09:14 02/21/2019 11:38:58 Family planning surveillance 817529551 Z30.09 [id number] Ervin Valadez HC ([employer]) [address] [place] [address] 18400-280 0 09/26/2019 10:09:06 09/27/2019 10:20:17 Family planning surveillance 446175842 Z30.09 At [facility] risk of sexually transmitted infection 296931763 Z20.2 Administra tion of influenza vaccine 29704246 Z23 [id number] SILVIO DELGADO ([employer]IVE [employer]) [address] [place] [address] 75708[address]835 0 09/10/2020 11:44:56 09/10/2020 13:18:17 Gynecologic examination 05189667 Z01.419 -Pelvic examinatio n completed today, milky malodorous discharge noted -cervical cancer screening UTD: last Pap 01/13/2019, negative for intraepith elial lesion or malignancy -nexplanon inserted for contracept ion -Educated osteoporos is prevention including calcium rich diet, weight bearing exercise. -Counseled regarding prevention of STDs and condom use Irregular periods 424876 07 N92.6 Pt has hx of endometrio sis w/ irregular periods, treated successful ly in the past with depo shots. She had difficulty returning to clinic q 3mo and wishes to have nexplanon instead. Bacterial vaginosis 4197 89347 N76.0 Physical exam consistent with BV, will treat with flagyl po. Take antibiotic s as prescribed , avoid alcohol while taking. Use mild, unscented soaps or plain water when washing, avoid any products with fragrance. Wear cotton underwear and loose fitting clothing. Wash only once per day, do not overscrub or douche. Endometrio sis of pelvis 41695800 N80.3 Noted at . Continue NSAIDs and heating pad for pain. Nexplanon inserted. Insertion of subcutaneous contraceptive 774329584 Z30.9 Nexplanon inserted today; pt tolerated procedure well. RTC in 6 weeks. [id number] SILVIO DELGADO ([employer]) [address] [place] [id number] 0 08/29/2021 16:17:14 09/02/2021 09:27:49 Surveillance of subcutaneous contraceptive implant [id number] Z30.46 Inserted 08/2020. AUB likely due to implant vs endometrio sis. Will trial Orilissa. If bleeding persists, pt may need estrogen add back therapy. RTC in 3 months. Endometrio sis of pelvis [id number] N80.3 Noted at . Pain mostly RLQ. Continue NSAIDs and heating pad for pain. Start Orilissa, counseled on use, SE, and RF. RTC in 3 months. [id number] [facility] [employer] [address] [place] [id number] 0 12/10/2021 15:48:52 12/12/2021 18:08:43 Gynecologic examination [id number] Z01.419 -cervical cancer screening: last Pap 01/13/2019, negative for intraepith elial lesion or malignancy . updated today-nexp lanon used for contracept ion, pt pleased with it-Educate d osteoporos is prevention including calcium rich diet, weight bearing exercise.- Counseled regarding prevention of STDs and condom use Endometrio sis of pelvis [id number] N80.3 Noted at time of . Pain mostly RLQ. Continue NSAIDs and heating pad for pain. Orilissa approved by insurance, sent to different pharmacy. Counseled on use, SE, and RF. RTC in 3 months. [id number] SILVIO DELGADO [facility] ([employer]) [address] [place] [address] 12/17/2022 13:59:58 01/15/2023 09:23:10 Acute vaginitis [id number] N76.0 Vaginal pruritis x 2 days, suspected yeast per history and exam. Treating empiricall y, will notify of results and change treatment accordingl y. Endometrio sis of pelvis [id number] N80.30 Stopped taking Orilissa due to side effects of hot flashes and insomnia. Currently on Nexplanon for control and managing pain with OTC analgesics and heating pads. Advised to RTC if symptoms worsen. [id number] [facility] DEL[facility] ([employer]) [address] [place] [phone] 0 07/08/2023 15:09:26 07/15/2023 09:27:08 Vulvovaginitis [id number] N76.0 Pt with vulvovagin al irritation x weeks. PE concerning for yeast, will treat empiricall y with terconazol e. Advised inserting cream intravagin ally as well as applying to outer vulva. Nuswab performed, will follow up with results. RTC if symptoms do not improve. Health Concerns Section Related Observation LastModified by Organization Detai ls LastModified Time None Recorded Concern Status LastModified by Organization Details LastModified Time None Recorded Advance Directives Directive N: Payers Encounter Date Sequence Insurance Name Policy Number Policy Jimenez Covered Member ID Jimenez Member ID Guarantor Name 09/10/2020 1 [place] [id number] 1 Sonja L Schoenbauer [id number] Sonja L Schoenbauer 08/29/2021 1 [place] [id number] 1 Sonja L Schoenbauer [id number] Sonja L Schoenbauer 12/10/2021 1 [place] [id number] 1 Sonja L Schoenbauer [id number] Sonja L Schoenbauer 12/17/2022 1 [place] [id number] 1 Sonja L Schoenbauer [id number] Sonja Young 07/08/2023 1 [place] [id number] 1 Sonja Young [id number] Sonja Young Notes Date Note Type Note Provider Name and Address Organization Details Recorded Time 09/10/2020 text/html Annual GYNReport ed bypatient.Menstrual cycle:Irregular cycle intervals Urinary symptoms:No hematuria; No incontinence Vulva:No genital lesion Vagina:White Breast:No breast pain; No breast lump; No nipple discharge Current Contraception: control not practiced; Wants to discuss contraceptive options Sexual complaints:Normal libido;Pain during intercourse Menopausal Symptoms:No menopausal symptoms; Normal vaginal lubrication Psychological symptoms:No depression; No anxiety; No PMDD Preventive measures:Encourage self breast examination; Encourage regular exercise; Encourage no tobacco use; Followed with Q3 year pap smear and high risk HPV typing Pt is a 25yo female with h/o endometriosis presenting w/ complaint of irregular periods. She desires to go back on control, interested in Nexplanon. She reports long history of irregular periods usually controlled with contraceptives. She was most recently on Depo Provera but was having difficulty coming in every 3 months for injection. She states endometriosis was noted during last . She endorses dyspareunia. She also reports abnormal milky discharge. Denies urinary symptoms, vaginal symptoms, n/v, fevers, chills. SILVIO DELGADO Attn: Accounting,[address] [place], [address], [facility] 09/10/2020 17:14:54 08/29/2021 text/html Abnormal BleedingReported bypatient.Onset/Timing :present cycle Duration:daily Quality:moderate Context:current contraception: (Nexplanon); history of endometriosis Associated Symptoms:no fatigue; no dizziness; no anemia/iron supplements; no shortness of breath; no CP/palpitations; no bloating; no change in bowel function; no urinary symptoms; no PMS; no vaginal discharge; no vaginal itching/irritation;dys menorrhea;pelvic pain;dyspareunia(occas ional) 26yo F with h/o endometriosis presents for abnormal bleeding x 18 days. Pt has Nexplanon for about year with regular monthly periods. She states this period never ended and she has been bleeding heavy to moderate for about 3 weeks. She denies new life stressors, medications, new sexual partners, abnormal discharge, fevers, chills. SILVIO DELGADO Attn: Accounting,[address] [place], [address], [facility] 08/30/2021 15:09:26 12/10/2021 text/html Annual GYNReport ed bypatient.History:no gynecologic complaints Menstrual cycle:Irregular cycle intervals Urinary symptoms:No hematuria; No incontinence Vulva:No genital lesion Vagina:Normal vaginal discharge Breast:No breast pain; No breast lump; No nipple discharge Current Contraception:Subderma l contraceptive implant Sexual complaints:No sexual complaints; No pain during intercourse; Normal libido Menopausal Symptoms:No menopausal symptoms; Normal vaginal lubrication Psychological symptoms:No depression; No anxiety; No PMDD Preventive measures:Encourage self breast examination; Encourage regular exercise; Encourage no tobacco use; Encourage regular mammograms starting age 40 Pt is a 26y/o with a pmhx of endometriosis presents today for her annual [place]. Her last pap was 01/13/19 and was normal. Pt says she has the Nexplanon implant and is happy with it. Pt says she has been trying to get Orilissa for a month or two now for endometriosis but the pharmacy keeps saying they cannot fill the prescription. She denies family history of breast, ovarian, endometrial, or colon cancer. Segundo Youssef MD Attn: Accounting[address] [place], [address], [facility] 01/02/2022 12:25:29 12/17/2022 text/html 27yo F with h/o endometriosis presents for vaginal irritation x2 days. She has been experiencing dryness and pruritis, but denies discharge, changes in urination, and abdominal tenderness. She believes she has a yeast infection as she has had them in the past. She stopped taking Orilissa due to side effects of hot flashes and insomnia. She is currently content with Nexplanon and manages her endometriosis with Tylenol and heating pads. LMP 12/08/22 SILVIO DELGADO Attn: Accounting,[address] , [place], [address], [facility] 01/08/2023 15:56:38 07/08/2023 text/html 28yo presen ting for evaluation of vulvar/vaginal irritation x weeks. Pt states that its feels like burning at her clitoris and towards the inside of vagina. She has discharge but it doesn't look different that her baseline. She denies odor, lesions, new sexual partner, new soaps/products, hematuria, frequency, urgency, fevers, chills, abnormal bleeding. SILVIO DELGADO Attn: Accounting,[address] , [place], [address], [facility] 07/09/2023 14:50:19 OBGyn Episode Ob Episode Information Episode Created Date Number of Fetuses Patient Bloodtype Patient rh Status Prepregnancy Weight lbs Domestic Partner Domestic Partner Phone Father Name Press Shop Supervisor Status 04/26/20 18 1 A Positive 117 CLOSED Fetus Data First Name Last Name Admitted to NICU Weight (g) Sex Living Outcome Pediatric Complications Fetus ID Race Codes Race Delivery Type [facility] false 3657.08 55 M true Full Term none [phone] White Problems Problem Notes 09/22/18 baby boy, yes to ci rc, breast feed, NCB, yes to epidural, PEDS, [facility], undecided, PPBC Depot injection, cb-rma Problem Name Start Date End Date Resolution Snomed Code Not e Bacterial vaginosis 11/13/2018 [id number] Migraine 06/17/2018 [id number] Cyst of ovary 04/26/2018 [id number] Endometriosis (clinical) [id number] History of chlamydial infection [id number] Fernandez Calculation Initial Fernandez Date Initial Exam Date Initial Exam Provider Initial Ultrasound Date Last Menstrual Period Date Ultra Sound Weeks Gestation 12/08/2018 04/26/2018 [email or web address] 05/21/2018 02/20/2018 11 Eighteen To Twenty Week Fernandez Update Ultra Sound Date Fundal Height At Umbil Quickening Date Ultra Sound Latest Weeks Gestation Final Fernandez Confirmed By Final Fernandez Confirmed Date Final Fernandez Date Ultra Sound Latest Days Gestation 05/21/20 18 11 [email or web address] 06/17/201812/08/ 019 2 Pre- Flowsheet Flowsheet Date 04/26/2018 Bee Score Blood Edema Fundus Height Fundus Units Glucose Ketones Leukocytes Nitrite Labor Signs Protein Cervic Dilation Cervic Effacement Cervic Station neg none 9 wks none small none neg Type Weight in lbs Pre/Post Dialysis Refused Weight 117.658774581534 BP Diastolic BP Location Tested BP Systolic BP Type 70 108 sitting Fetus Heart Rate Present Fetus Movement A No Comments NOB. Positive home test 04/07/18. LMP 02/20/18. Check ultrasound to evaluate ovarian cyst. Flowsheet Date 05/20/2018 Bee Score Blood Edema Fundus Height Fundus Units Glucose Ketones Leukocytes Nitrite Labor Signs Protein Cervic Dilation Cervic Effacement Cervic Station neg none 12 wks none negative none neg Type Weight in lbs Pre/Post Dialysis Refused Weight 116.72526057012 BP Diastolic BP Location Tested BP Systolic BP Type 52 92 sitting Fetus Heart Rate Present A 166 Present Fetus Movement Comments AFP and 2nd trimester ultras ound ordered. Flowsheet Date 06/17/2018 Bee Score Blood Edema Fundus Height Fundus Units Glucose Ketones Leukocytes Nitrite Labor Signs Protein Cervic Dilation Cervic Effacement Cervic Station neg none 15 wks none negative none Type Weight in lbs Pre/Post Dialysis Refused Weight 116.87459554318 BP Diastolic BP Location Tested BP Systolic BP Type 44 88 sitting Fetus Heart Rate Present A 154 Present Fetus Movement A No Comments afp/us Flowsheet Date 07/15/2018 Bee Score Blood Edema Fundus Height Fundus Units Glucose Ketones Leukocytes Nitrite Labor Signs Protein Cervic Dilation Cervic Effacement Cervic Station neg none 19 wks none negative Backpain neg Type Weight in lbs Pre/Post Dialysis Refused Weight 122.986339487178 BP Diastolic BP Location Tested BP Systolic BP Type 42 100 sitting Fetus Heart Rate Present A 150 Present Fetus Movement Comments . Normal US done at [facility]. No Complaints. Flowsheet Date 08/25/2018 Bee Score Blood Edema Fundus Height Fundus Units Glucose Ketones Leukocytes Nitrite Labor Signs Protein Cervic Dilation Cervic Effacement Cervic Station neg none 21 cm none negative none neg Type Weight in lbs Pre/Post Dialysis Refused Weight 133.939485597855 BP Diastolic BP Location Tested BP Systolic BP Type 56 98 sitting Fetus Heart Rate Present A 151 Present Fetus Movement A Yes Comments GTT, CBC, Tdap next visit. O B/FU packet given. FMLA paperwork to be completed. Flowsheet Date 09/22/2018 Bee Score Blood Edema Fundus Height Fundus Units Glucose Ketones Leukocytes Nitrite Labor Signs Protein Cervic Dilation Cervic Effacement Cervic Station neg none 29 wks none negative none neg Type Weight in lbs Pre/Post Dialysis Refused Weight 139.470784910599 BP Diastolic BP Location Tested BP Systolic BP Type 46 96 sitting Fetus Heart Rate Present A 144 Present Fetus Movement A Yes Comments gtt/tdap/us/flu/childbirth c lasses Flowsheet Date 10/06/2018 Bee Score Blood Edema Fundus Height Fundus Units Glucose Ketones Leukocytes Nitrite Labor Signs Protein Cervic Dilation Cervic Effacement Cervic Station neg none 31 wks none negative none neg Type Weight in lbs Pre/Post Dialysis Refused Weight 139.768114630836 BP Diastolic BP Location Tested BP Systolic BP Type 60 112 sitting Fetus Heart Rate Present A 152 Present Fetus Movement A Yes Comments Flowsheet Date 10/21/2018 Bee Score Blood Edema Fundus Height Fundus Units Glucose Ketones Leukocytes Nitrite Labor Signs Protein Cervic Dilation Cervic Effacement Cervic Station neg none 33 wks none negative none neg Type Weight in lbs Pre/Post Dialysis Refused Weight 139.410149360375 BP Diastolic BP Location Tested BP Systolic BP Type 60 100 sitting Fetus Heart Rate Present A 144 Present Fetus Movement A Yes Comments Flowsheet Date 11/03/2018 Bee Score Blood Edema Fundus Height Fundus Units Glucose Ketones Leukocytes Nitrite Labor Signs Protein Cervic Dilation Cervic Effacement Cervic Station neg none 35 wks none negative none neg Type Weight in lbs Pre/Post Dialysis Refused With clothes 145.1591523228 BP Diastolic BP Location Tested BP Systolic BP Type 60 100 sitting Fetus Heart Rate Present A 162 Present Fetus Movement A Yes Comments Flowsheet Date 11/11/2018 Bee Score Blood Edema Fundus Height Fundus Units Glucose Ketones Leukocytes Nitrite Labor Signs Protein Cervic Dilation Cervic Effacement Cervic Station neg none 36 wks none negative none neg Type Weight in lbs Pre/Post Dialysis Refused With clothes 148.311061820377 BP Diastolic BP Location Tested BP Systolic BP Type 58 92 sitting Fetus Heart Rate Present A 155 Fetus Movement A Yes Comments wtc/wlb Flowsheet Date 11/17/2018 Bee Score Blood Edema Fundus Height Fundus Units Glucose Ketones Leukocytes Nitrite Labor Signs Protein Cervic Dilation Cervic Effacement Cervic Station none 37 wks none 0cm 70% -2 Type Weight in lbs Pre/Post Dialysis Refused With clothes 146.798400460595 BP Diastolic BP Location Tested BP Systolic BP Type 68 116 sitting Fetus Heart Rate Present A 150 Present Fetus Movement A Yes Comments labor instructions given Flowsheet Date 01/13/2019 Bee Score Blood Edema Fundus Height Fundus Units Glucose Ketones Leukocytes Nitrite Labor Signs Protein Cervic Dilation Cervic Effacement Cervic Station Type Weight in lbs Pre/Post Dialysis Refused Weight 125.858860521727 BP Diastolic BP Location Tested BP Systolic BP Type 68 R arm 110 sitting Fetus Heart Rate Present Fetus Movement Comments Menstrual History Last Menstrual Date Menses Monthly On Bcp Conception Prior Menses Frequency Hcg Plus Date Menarche Onset Age 0402/20/2018 false Genetic Screening And Infection History Question Response Note Patient's Age Will Be 35 Yea rs Or Older At Estimated Date of Delivery false Thalassemia (Macedonian, Albanian, Mediterranean, Or Background): MCV < 80 false Neural Tube Defect (Meningom yelocele, Spina Bifida, Or Anencephaly) false Congenital Heart Defect false Down Syndrome false Conner-Sachs (eg, Uatsdin, Cajun, Icelandic-Singaporean) f alse Lexie Disease false Sickle Cell Disease Or Trait () false Hemophilia Or Other Blood Disorders false Muscular Dystrophy false Cystic Fibrosis false Trenton's Chorea false Mental Retardation/Autism false If Yes, Was Person Tested For Fragile X? false Other Inherited Genetic Or Chromosomal Disorder false Maternal Metabolic Disorder (eg, Type 1 Diabetes , PKU) false Patient Or Baby's Father Had A Child With Defects Not Listed Above false Recurrent Loss, Or A Stillbirth false Medications (including Suppl ements, Vitamins, Herbs, OTC Drugs), Illicit/Recreational Drugs, Alcohol false If Yes, Agent(s) And Strength/Dosage false Any Other Genetic History false Live With Someone With TB Or Exposed To TB false Patient Or Partner Has History Of Genital Herpes false Rash Or Viral Illness Since Last Menstrual Perio d false History Of STD, Gonorrhea, Chlamydia, HPV, Syphi lis true Chlamydia, Other Infection History true Candidia sis History of HIV false History of Hepatitis false Prior GBS-infected child false Plans and Education First Trimester Discussed Date Discussion Item Discussion Note Discuss ed By 09/22/2018 11/17/18 breast feed, jo chester Second Trimester Discussed Date Discussion Item Discussion Note Discuss ed By 09/22/2018 Selecting a care provider 09/22/18 Peds [facility], undecided, rebekah-rmhenrik [email or web address] 09/22/2018 family planning/tubal sterilization 11/17/18 ppbc depot provera, cb-rma Third Trimester Discussed Date Discussion Item Discussion Note Discuss ed By 09/22/2018 Anesthesia plans 11/17/18 NCB ye s to epidural if needed, pauline [email or web address] 09/22/2018 Circumcision 11/17/18 baby la y, yes to circ, [email or web address] 09/22/2018 11/17/18 breast feed. pauline [email or web address] 07/26/2018 Family medical leave or disability forms 07/15/18 FMLA Papers in [place], original Copy @ [facility], pauline [email or web address] Delivery Information Delivery Date Delivery Type Labor Anesthesia Weeks Gestation Incision Type Labor Labor Length Hrs Delivered By Post Complications Tubal Sterilization Discharge Date Comments 9 None Regional-Sp inal 38 Low Transvers e false DIRECTOR APPOINTMENT None false 11/26/2018 Discharge Information Feeding Method Contraceptive Method Maternal HG B and HCT Levels Bottle depo-provera 11/26/18
--- OUTSIDE RECORDS SUMMARY | 2025-02-20 18:19 | XMS_ITS | Clinical Summary ---
Author Organization [facility] Address [address] [place] [phone] Care Team Providers Care Supervisor Drapery Hanging Name Role Phone Unavailable Primary Care Provider Unavailabl e Allergies No known active allergies Medications methylPREDNISolo ne (MEDROL DOSPACK) 4 mg Tablets, Dose PackIndications: Acute pharyngitis, unspecified etiology Use as directed 21 Tablet 2 Active Active Problems No known active problems Social History Tobacco Use Types Packs/Day Years Used Date Smoking Tobacco: Never Smokeless Tobacco: Never Tobacco Cessation:Counseling Given: Not Answered Alcohol Use Standard Drinks/Week Comments Never 0 (1 standard drink = 0.6 oz pur e alcohol) Feeling Safe Answer Date Recorded Are you in a relationship wi th someone who hurts you emotionally and/or physically? No 06/01/2023 Comments No Sex and Gender Information Value Date Recorded Sex Assigned at Not on file Legal Sex Female 3:10 PM CDT Gender Identity Not on file Sexual Orientation Not on file Last Filed Vital Signs Vital Sign Reading Time Taken Comments Blood Pressure 113/66 06/01/2023 1:04 PM CDT Pulse 108 06/01/2023 1:04 PM CDT Temperature 36.7 C (98 F) 06/01/2023 1:04 PM CDT Respiratory Rate 18 06/01/2023 1:04 PM CDT Oxygen Saturation 99% 06/01/2023 1:04 PM CDT Inhaled Oxygen Concentration - - Weight 54.4 kg (120 lb) 06/01/2023 1:04 PM CDT Height 162.6 cm (5' 4 ) 06/01/2023 1:04 PM CDT Body Mass Index 20.6 06/01/2023 1:04 PM CDT Plan of Treatment Health Maintenance Due Date Last Done Comments HEPATITIS B VACCINES (1 of 3 - 19+ 3-dose series) 2015 CERVICAL CANCER SCREENING 2017 HPV/Cotest (21-29) 2017 PAP SMEAR 2017 INFLUENZA VACCINE (#1) 2024 9, 09/22/2018 DTAP/TDAP/TD VACCINES (2 - T d or Tdap) 09/22/2028 09/22/2018 HPV VACCINES Aged Out No longer eligi ble based on patient's age to complete this topic PNEUMOCOCCAL VACCINE 0-49 YEARS Aged Out No longer eligible b ased on patient's age to complete this topic Insurance [facility] EPO BCBS BLUE ACCESS/TRUE BLUE PPO
--- NOTE | 2025-02-20 19:32 | ED.EAR ---
HPI - Ear Problem General Chief complaint: Ear Stated complaint: Right Ear Pain Source: patient and RN notes reviewed Mode of arrival: ambulatory Limitations: no limitations History of Present Illness HPI Narrative: 29-year-old female presents express here complaining of right ear pain x2 days. She also reports that ear fullness on right side. She denies any cough, congestion, sore throat, fevers, body aches, chills, or any other symptoms. Patient states that she wears ear phones 12 hours a day at work and replaces them each shift. She said as a child she had ear tubes. Related Data Allergies Allergy/AdvReac Type Severity Reaction Status Date / Time No Known Allergies Allergy Unverified 02/20/25 18:16 Review of Systems Review of Systems: CONSTITUTIONAL: Denies fever, chills, or sweats. EYES: Denies visual changes, redness, or discharge. ENT: Denies rhinorrhea, congestion, sore throat, positive for otalgia and right ear fullness. CARDIOVASCULAR: Denies chest pain, palpitations, or edema. RESPIRATORY: Denies cough or dyspnea. GASTROINTESTINAL: Denies abdominal pain, nausea, vomiting, or diarrhea. GENITOURINARY: Denies dysuria or hematuria. SKIN: Denies rash or itching. MUSCULOSKELETAL: Denies back pain, joint pain, or myalgia. NEUROLOGIC: Denies headache, numbness, or weakness. PSYCHIATRIC: Denies anxiety or depression. All other systems reviewed are negative, except as documented in HPI. PMFSH Comments At the time of my signature, I reviewed and agree with the nursing past medical, surgical, social, and family history. There is no relevant family history pertinent to the patient complaint. Exam Narrative: GENERAL: This is a well-nourished, well-developed adult, in no apparent distress. They are non ill-appearing, nontoxic appearing. HEAD: normocephalic, atraumatic. EYES: Sclera clear/white. Vision is grossly intact. EARS: External ears normal, left auditory canal clear and without drainage, right tragal tenderness with movement, right auditory canal is erythematous without discharge. TMs normal without perforation. Hearing grossly intact. NOSE: External nose normal with no obvious nasal discharge, nares without redness, no rhinorrhea. THROAT: Mucous membranes moist, posterior pharynx clear. CARDIOVASCULAR: Regular rate and rhythm without murmurs, gallops, or rubs. RESPIRATORY: Clear to auscultation. Breath sounds equal bilaterally. No wheezes, rales, or rhonchi. SKIN: warm, Dry, intact with no suspicious lesions or rash, good texture and turgor. NEURO: awake, alert, and oriented to person, place and time. There were no obvious focal neurologic abnormalities. EXTREMITIES: No joint tenderness, effusion, or edema noted. Course Course Emergency Course: Patient is aware of diagnosis, understands and agrees to treatment plan. Anticipatory guidance given. Patient agrees to follow-up as directed and is aware of reasons to seek care at the emergency department. Portions of this record may have been created with voice recognition software Level of Care: Express Care Visit Vital Signs Vital signs: Vital Signs Temperature 98.0 F 02/20/25 18:17 Pulse Rate 74 02/20/25 18:17 Respiratory Rate 16 02/20/25 18:17 Blood Pressure 103/60 02/20/25 18:17 Pulse Oximetry 100 02/20/25 18:17 Oxygen Delivery Room Air 02/20/25 18:17 Temperature 98.0 F 02/20/25 18:17 Pulse Rate 74 02/20/25 18:17 Respiratory Rate 16 02/20/25 18:17 Blood Pressure 103/60 02/20/25 18:17 Pulse Oximetry 100 02/20/25 18:17 Oxygen Delivery Room Air 02/20/25 18:17 Reviewed Medical Decision Making MDM Narrative Medical decision making narrative: Patient's right ear is consistent with an otitis externa. The TM is intact without redness or swelling. Will treat the patient empirically with Ciprodex ear drops. Discussed physical exam findings. Advised supportive measures and signs/symptoms to go to the ER. Pt is appropriate for outpt treatment and f/u. Vital Signs Vital Signs: Vital Signs Temperature 98.0 F 02/20/25 18:17 Pulse Rate 74 02/20/25 18:17 Respiratory Rate 16 02/20/25 18:17 Blood Pressure 103/60 02/20/25 18:17 Pulse Oximetry 100 02/20/25 18:17 Oxygen Delivery Room Air 02/20/25 18:17 Temperature 98.0 F 02/20/25 18:17 Pulse Rate 74 02/20/25 18:17 Respiratory Rate 16 02/20/25 18:17 Blood Pressure 103/60 02/20/25 18:17 Pulse Oximetry 100 02/20/25 18:17 Oxygen Delivery Room Air 02/20/25 18:17 Critical Care Time Critical Care Time Critical Care Time: No Discharge Plan Discharge Clinical Impression: Otitis externa Qualifiers: Otitis externa type: unspecified type Chronicity: acute Laterality: right Qualified Code(s): H60.501 - Unspecified acute noninfective otitis externa, right ear Patient Disposition: Home Condition: Stable Instructions: Antibiotic Form, Swimmer's Ear (ED) Additional Instructions: -Ear drops as directed for 7-10 days until the pain and swelling are gone. -When administer drug into the affected ear; make sure to ly down with the affected ear facing upward, message the ear canal to help the drops reach the medial end of the canal, then remain in that position for at least 5 mintues. -Avoid using cotton tipped applicator for ears cleaning -Avoid exposing swimming or exposing the affected ear to water during the treatment period Take or alternate tylenol or ibuprofen every 4 - 6 hours if needed for pain. Follow up with primary care provider if condition is not improving in 7 days or sooner if there is new concern. Patient Language: Macanese Prescriptions: New ciprofloxacin-dexamethasone 0.3-0.1 % drops,suspension 4 drp RIGHT EAR Q12H 7 Days Qty: 7.5 0RF Follow-up/Referrals: PHYSICIAN,PERSONAL COMPANION [Primary Care Provider] - Stand Alone Forms: Work/School Release IP Time of Disposition: 18:49
== END 2025-02-20 18:54 | disposition home or self-care (01) ==
DX: H60.501 Unspecified acute noninfective otitis externa, right ear (principal); N80.9 Endometriosis, unspecified
CPT/HCPCS: 99213; G0463